=== PATIENT | female | born 1990 | race Caucasian/White ===

== ENCOUNTER 2020-09-10 09:57 | Outpatient (CLI) | payer OTHER, SELFPAY ==
--- NOTE | 2020-09-10 10:04 | ECG_ITS ---
Measurements Intervals [place] Rate: 56 P: 64 VA: 145 QRS: 80 QRSD: 87 T: 53 QT: 410 QTc: 398 Interpretive Statements SINUS BRADYCARDIA BORDERLINE ECG Electronically Signed On 09-10-2020 10:40:04 [employer] PACKER by Faustino Escobar D.O.
== END 2020-09-10 09:58 | disposition home or self-care (01) ==
PROVIDERS: PCP Family Medicine; Visit Provider Physician Assistant
DX: R00.2 Palpitations (principal); I34.0 Nonrheumatic mitral (valve) insufficiency; R00.1 Bradycardia, unspecified
CPT/HCPCS: 93005

== ENCOUNTER 2020-09-23 14:09 | Outpatient (CLI) | payer OTHER, SELFPAY ==
--- NOTE | 2020-09-23 14:16 | ECHO_ITS ---
Patient Info Name: Sabina Sullivan Age: 30 years : 1990 Gender: Female Ht: 70 in Wt: 145 lbs BSA: 1.80 m2 HR: 60 bpm BP: 126 / 84 mmHg Heart Rhythm: Sinus Rhythm Technical Quality: Good Exam Date: 09/23/2020 2:24 PM Exam Location: [facility] Patient Status: Outpatient Admit Date: 09/23/2020 Staff Ordering Physician: Genesis Stein PA-C [facility]hs Specialist: Sami Packer RDCS Attending Provider: Genesis Stein PA-C Referring Physician: Emil PEÑA; Exam Type: CA echo doppler color flow Study Info Indications R00.2 - Palpitations Complete two-dimensional, color flow and Doppler transthoracic echocardiogram is performed. Strain analysis performed. History/Risk Factors Palpitations. Summary 1. Complete two-dimensional, color flow and Doppler transthoracic echocardiogram is performed. 2. Left ventricular chamber dimension is normal. 3. Left ventricular systolic function is normal, estimated at 60-65%. 4. The left ventricular diastolic function is normal. 5. E/e' 4 is not elevated. 6. Global longitudinal strain is normal at -25.3%. 7. There is mild mitral valve regurgitation. 8. There is trace tricuspid valve regurgitation. 9. Dilated inferior vena cava with >50% collapse upon inspiration consistent with normal right atrial pressure, 10 mmHg. Left Ventricle E/e' 4 is not elevated. Global longitudinal strain is normal at -25.3%. Left ventricular chamber dimension is normal. Left ventricular systolic function is normal, estimated at 60-65%. The left ventricular diastolic function is normal. Right Ventricle Right ventricular chamber dimension is normal. Right ventricular systolic function is normal. Left Atria Left atrial chamber dimension is normal. Right Atria Right atrial chamber dimension is normal. Aortic Valve The aortic valve is trileaflet. There is no aortic valve stenosis. There is no aortic valve regurgitation. Pulmonic Valve There is no pulmonic regurgitation. Mitral Valve There is no mitral valve stenosis. There is mild mitral valve regurgitation. Tricuspid Valve There is trace tricuspid valve regurgitation. RVSP is not calculated due to an inadequate TR jet. Pericardium/Pleural The pericardium appears normal. Inferior Vena Cava Dilated inferior vena cava with >50% collapse upon inspiration consistent with normal right atrial pressure, 10 mmHg. Aorta The aortic root size at the sinus of Valsalva is normal. Left Ventricular Outflow Tract Name Value Normal LVOT 2D LVOT Diameter 2.0 cm LVOT Doppler LVOT Peak Gradient 7 mmHg LVOT Mean Gradient 4 mmHg LVOT VTI 28 cm LVOT VTI/AV VTI Ratio 0.8 LVOT Stroke Volume 85 ml LVOT CO 5.5 l/min LVOT CI 3.0 l/min/m2 Mitral Valve Name Value Normal -------
== END 2020-09-23 14:10 | disposition home or self-care (01) ==
PROVIDERS: PCP Family Medicine; Visit Provider Physician Assistant
DX: I34.0 Nonrheumatic mitral (valve) insufficiency (principal); R00.2 Palpitations
CPT/HCPCS: 93306

== ENCOUNTER → 2021-02-10 13:05 | Outpatient (CLI) | payer OTHER, SELFPAY ==
--- NOTE | ~2021-02-10 | US_ITS ---
EXAMINATION: US pelvic complete DATE: 02/10/2021 13:21 INDICATION: Chronic bloating TECHNIQUE: Multiple transabdominal sonographic images of the pelvis were obtained. COMPARISON: None. FINDINGS: The uterus measures 8.6 x 3.5 x 4.5 cm. The endometrial complex measures 5 mm. The right ov nikunj measures 3.4 x 2.2 x 3.7 cm. The left ovary measures 3.6 x 2.7 x 3.8 cm. There is normal vascular flow in the ovaries. There is no free fluid in the pelvis. IMPRESSION: 1. No sonographic correlate for the patient's symptoms. Reviewed, dictated and finalized at location A.
== END ==
PROVIDERS: Visit Provider Nurse Practitioner
DX: R14.0 Abdominal distension (gaseous) (principal)
CPT/HCPCS: 76856

== ENCOUNTER 2021-03-14 22:22 | Emergency (ER) | payer OTHER, SELFPAY ==
[2021-03-14 22:24] VITALS: BP 135/70; PULSE 70; RESP 16; TEMP 36.3; O2SAT 99
--- NOTE | 2021-03-14 22:33 | ED.WOUNDLAC ---
HPI - Wound/Laceration General Chief Complaint: Wound/Laceration Stated Complaint: cut finger Time Seen by Provider: 03/14/21 22:29 Source: patient and RN notes reviewed Mode of arrival: ambulatory Limitations: no limitations History of Present Illness HPI narrative: Patient is 30 years old white female presents with right index laceration while cleaning a gas blender prior to arrival to the emergency room, patient is up-to-date for tetanus shot. Related Data Home Medications Medication Instructions Recorded Confirmed norethindrone-e.estradiol-iron tablet 03/14/21 Allergies Allergy/AdvReac Type Severity Reaction Status Date / Time No Known Allergies Allergy Verified 03/14/21 22:23 Review of Systems Review of Systems: Narrative: CONSTITUTIONAL: Denies fever, chills, or sweats. EYES: Denies visual changes, redness, or discharge. ENT: Denies rhinorrhea, congestion, sore throat, or otalgia. CARDIOVASCULAR: Denies chest pain, palpitations, or edema. RESPIRATORY: Denies cough or dyspnea. GASTROINTESTINAL: Denies abdominal pain, nausea, vomiting, or diarrhea. GENITOURINARY: Denies dysuria or hematuria. SKIN: Denies rash or itching. MUSCULOSKELETAL: Denies back pain, joint pain, or myalgia. NEUROLOGIC: Denies headache, numbness, or weakness. PSYCHIATRIC: Denies anxiety or depression. PMFSH Past Medical History Medical History Mitral regurgitation Surgical History Surgical History No history of previous surgery Family History Family History Unknown No family history of disorders Social History Social History Smoking status: Never smoker Alcohol intake: current Substance use: never Gender identity (if verbalized by the patient): Female Exam Narrative: Exam Narrative: General appearance: Well-developed, well-nourished Skin: Normal color, right index showed three-quarter centimeter laceration at the palmar side of the tip of the finger Chest and respiratory: Airway patent, no respiratory distress, no accessory muscle use Heart: Regular rate/rhythm Vascular: Normal peripheral pulses, normal capillary refill. Musculoskeletal: Normal range of motion, nontender back Course Course Emergency Course: Stable Vital Signs Vital signs: Vital Signs Temperature 36.3 C L 03/14/21 22:24 Pulse Rate 70 03/14/21 22:24 Respiratory Rate 16 03/14/21 22:24 Blood Pressure 135/70 03/14/21 22:24 Pulse Oximetry 99 03/14/21 22:24 Temperature 36.3 C L 03/14/21 22:24 Pulse Rate 70 03/14/21 22:24 Respiratory Rate 16 03/14/21 22:24 Blood Pressure 135/70 03/14/21 22:24 Pulse Oximetry 99 03/14/21 22:24 Procedures Laceration Laceration 1: Date: 03/14/21 Time: 22:41 Site: hand (Right index) Side (If applicable): right Size (cm): 0.75 Description: flap and clean Depth: simple, single layer Pre-repair: wound explored ====== Skin Level ====== Skin layer closed with: dermabond ====== Subcutaneous Layer ====== ====== Muscle Layer ====== ====== Tendon Layer ====== MDM - Wound/Laceration MDM Narrative Medical decision making narrative: Laceration of the tip of the right index, and plan to use Betadine PATH AND Dermabond. Differential Diagnosis Differential diagnosis: Likely laceration Critical Care Time Critical Care Time Critical Care Time: No Discharge Plan Discharge Clinical Impression: Finger laceration Patient Disposition: Home, Self-Care Condition: Improved Instructions: Laceration (ED) Additional Instructions: Return if symptoms are worsening , call your family physician for appointment, take
--- NOTE | 2021-03-14 22:37 | PC.NURSE ---
Pt to soak injury in betadine solution per .
[2021-03-14 23:24] VITALS: BP 129/78; PULSE 64; RESP 14; O2SAT 99
== END 2021-03-14 23:25 | disposition home or self-care (01) ==
PROVIDERS: Emergency Provider Emergency Medicine; PCP Family Medicine
DX: S61.210A Laceration without foreign body of right index finger without damage to nail, initial encounter (principal); I34.0 Nonrheumatic mitral (valve) insufficiency; W29.0XXA Contact with powered kitchen appliance, initial encounter
CPT/HCPCS: 12001; 99282

== ENCOUNTER 2021-03-28 21:34 | Emergency (ER) | payer OTHER, SELFPAY ==
[2021-03-28 21:54] VITALS: BP 103/57; PULSE 92; RESP 18; TEMP 36.8; O2SAT 100
[2021-03-28 22:20] VITALS: BP 109/64; PULSE 87; RESP 16; TEMP 36.8; O2SAT 97
[2021-03-28] MEDS: ONDANSETRON INJ 4 MG/2 ML VIAL IV PUSH (22:39)
[2021-03-28] MEDS: SODIUM CHLORIDE 0.9% IV 1,000 ML 999 ML IV CONT (22:39)
[2021-03-28 22:41] LABS: Basophils Percent Auto 0.2 % (0.2-1.2); Eosinophils Percent Auto 0.2 % (0-4.4); Hematocrit 40.5 % (37.0-47.0); Hemoglobin 13.4 g/dL (12.0-15.0); Immature Granulocyte Absolute 0.03 K/mm3 (0.00-0.031); Immature Granulocyte Percent A 0.3 % (0-0.5); Lymphocytes Absolute Auto 0.53 K/mm3 (0.9-3.2); Lymphocytes Percent Auto 5.6 % (18.3-44.2); Mean Corpuscular HGB Conc 33.1 g/dl (32-36); Mean Corpuscular Hemoglobin 28.8 pg (26-34); Mean Corpuscular Volume 87.1 fl (80-100); Mean Platelet Volume 10.4 fl (7.4-10.4); Monocytes Absolute Auto 0.3 K/mm3 (0.1-0.6); Monocytes Percent Auto 3.5 % (2.6-8.5); Neutrophils Absolute Auto 8.5 K/mm3 (1.3-6.7); Neutrophils Percent Auto 90.2 % (45.5-73.1); Platelet Count Result 184 k/mm3 (150-375); Red Blood Count 4.65 M/mm3 (4.2-5.4); Red Cell Distribution Width 12.4 % (11.5-14.5); White Blood Count 9.5 K/mm3 (4.5-10.0)
[2021-03-28 22:55] LABS: Alanine Aminotransferase 14 U/L (4-35); Albumin Level 4.5 g/dL (3.5-5.1); Alkaline Phosphatase 43 U/L (38-126); Anion Gap 9 mmol/L (8-16); Aspartate Amino Transferase 27 U/L (14-36); Bilirubin,Total 0.7 mg/dL (0.2-1.3); Blood Urea Nitrogen 19 mg/dL (7-17); Calcium 9.1 mg/dL (8.4-10.2); Carbon Dioxide 25 mmol/L (22-30); Chloride 106 mmol/L (98-107); Estimated CRCL calculation 87 ml/min; Estimated Glomerular Filt Rate > 60; Glucose 117 mg/dL (65-105); Lipase 80 U/L (23-300); Potassium 4.1 mmol/L (3.4-5.0); Sodium 140 mmol/L (137-145)
[2021-03-28 23:12] VITALS: BP 105/81; PULSE 92; RESP 18; O2SAT 99
--- NOTE | 2021-03-28 23:54 | ED.NAVMDI ---
HPI - Nausea/Vomiting/Diarrhea General Chief complaint: Nausea/Vomiting/Diarrhea <Delfin Bullard MD - Last Filed: 03/28/21 23:57> Stated complaint: n/v/d <Delfin Bullard MD - Last Filed: 03/28/21 23:57> Time Seen by Provider: 03/28/21 22:14 <Delfin Bullard MD - Last Filed: 03/28/21 23:57> History of Present Illness HPI Narrative: Patient is a 30-year-old female who presents ER with abdominal pain and back pain. Associate with nausea and one episode of diarrhea. No known sick contacts. Denies fevers or chills or sweats. Nausea worsened by laying backwards. Pain in her back is low back and she feels like it is associate with her abdominal cramping/discomfort. No urinary frequency urgency or dysuria. She is has no history of kidney stones. No alleviating factors. <Delfin Bullard MD - Last Filed: 03/28/21 23:57> Related Data Home medications: Home Medications Medication Instructions Recorded Confirmed norethindrone-e.estradiol-iron tablet 03/14/21 <Delfin Bullard MD - Last Filed: 03/28/21 23:57> Allergies/Adverse reactions: Allergies Allergy/AdvReac Type Severity Reaction Status Date / Time No Known Allergies Allergy Verified 03/28/21 22:25 <Delfin Bullard MD - Last Filed: 03/28/21 23:57> Review of Systems Review of Systems: All systems reviewed & are unremarkable except as noted in HPI and below <Delfin Bullard MD - Last Filed: 03/28/21 23:57> Constitutional: Constitutional: Denies chills, Denies fever(s) and Denies weakness <Delfin Bullard MD - Last Filed: 03/28/21 23:57> Cardiovascular: Cardiovascular: Denies chest pain and Denies radiating jaw, neck or arm pain <Delfin Bullard MD - Last Filed: 03/28/21 23:57> Respiratory: Respiratory: Denies cough and Denies dyspnea <Delfin Bullard MD - Last Filed: 03/28/21 23:57> Gastrointestinal: Gastrointestinal: Reports abdominal pain, Reports diarrhea, Reports nausea and Denies vomiting <Delfin Bullard MD - Last Filed: 03/28/21 23:57> Genitourinary: Genitourinary: Denies abnormal vaginal bleeding, Denies hematuria, Denies nocturia, Denies dysuria, Denies pelvic pain and Denies flank pain <Delfin Bullard MD - Last Filed: 03/28/21 23:57> Musculoskeletal: Musculoskeletal: Reports back pain, Denies joint swelling and Denies muscle cramps <Delfin Bullard MD - Last Filed: 03/28/21 23:57> [facility] Past Medical History Medical History: Medical History Mitral regurgitation <Delfin Bullard MD - Last Filed: 03/28/21 23:57> Surgical History Surgical History: Surgical History No history of previous surgery <Delfin Bullard MD - Last Filed: 03/28/21 23:57> Family History Family History: Family History Unknown No family history of disorders <Delfin Bullard MD - Last Filed: 03/28/21 23:57> Social History Social History: Social History Smoking status: Never smoker Alcohol intake: current Substance use: never Gender identity (if verbalized by the patient): Female <Delfin Bullard MD - Last Filed: 03/28/21 23:57> Exam Narrative: Exam Narrative: GENERAL: Well-appearing, well-nourished, and in no acute distress. HEAD: Normocephalic, atraumatic. EYES: PERRL and EOMI. ENT: Mucous membranes moist. CHEST: Clear to auscultation. No respiratory distress. HEART: Regular rate and rhythm. Normal peripheral pulses. ABDOMEN: Soft, mild left upper and lower quadrant discomfort without rebound or guarding, nondistended. Back: No midline tenderness of thoracic or lumbar spine. No CVA tenderness. No reproducible paraspinal muscular tenderness. EXTREMITIES: Normal range of motion. No edema. SKIN: Warm, dry, no rash. NEURO: Alert and orient
[2021-03-29 00:10] LABS: Add Urine Microscopic? YES; Appearance Urine Clear (Clear); Bilirubin Urine Negative (Negative); Blood Urine Negative (Negative); Color Urine Yellow (Yellow); Glucose Urine UA Negative (Negative); Ketones Urine Negative (Negative); Leukocyte Esterase Ur Trace LEU/UL (Negative); Mucus Urine Rare /lpf; Nitrate Urine Negative (Negative); Protein Urine 1+ mg/dL (Negative); RBC Urine 0-2 /hpf (0-2); Specific Grav Ur 1.026 (1.001-1.035); Squamous Epithelial Cell Urine Moderate /hpf (Few); Urobilinogen Urine Negative mg/dL (<2.0); WBC Urine 0-3 /hpf
[2021-03-29] MEDS: ONDANSETRON INJ 4 MG/2 ML VIAL IV PUSH (00:39)
[2021-03-29 01:22] VITALS: BP 107/79; PULSE 81; RESP 18; O2SAT 99
== END 2021-03-29 01:24 | disposition home or self-care (01) ==
PROVIDERS: Emergency Medicine; Emergency Provider Emergency Medicine; PCP Family Medicine
DX: K52.9 Noninfective gastroenteritis and colitis, unspecified (principal); I34.0 Nonrheumatic mitral (valve) insufficiency
CPT/HCPCS: 36415; 80053; 81001; 81025; 83690; 85025; 96361; 96374; 99284; J2405; J7030